=== PATIENT | female | born 1940 | race Caucasian/White ===

== ENCOUNTER → 2019-01-25 | Outpatient (CLI) | payer MEDICARE ==
--- NOTE | 2019-01-25 21:53 | MR ---
EXAMINATION TYPE: MR shoulder RT wo con DATE OF EXAM: 01/25/2019 COMPARISON: Plain film from outside institution 01/12/2019 HISTORY: Rt shoulder pain x 1 yr TECHNIQUE: Multiplanar, multisequence imaging of the right shoulder is performed without contrast. FINDINGS: There is motion on the exam. Rotator Cuff: Complete supraspinatus tendon tear is present with retraction to the level of the acrom ion. Acromioclavicular Joint: Marked arthropathy changes present. Glenohumeral Joint: There is remodeling of the glenohumeral joint. Some marginal spurring present. Labrum: Some intrasubstance signal is present, difficult to exclude some degenerative fraying at the superior labrum. Some linear increased signal at the posterior aspect also noted suspicious for tear Biceps Tendon: There is fluid signal in the bicipital groove. The tendon is not well-defined. Bone marrow signal: Some probable pseudocysts present within the humeral head. Other: There is a joint effusion. Fluid signal subacromial subdeltoid bursa. IMPRESSION: Probable chronic rotator cuff tear, remodeling at the glenohumeral joint as described with probable c hronic tear of the labrum. Long head of biceps tendon not appreciated, joint effusion. Osteoarthritic changes. Motion on the exam.
== END | disposition home or self-care (01) ==
LOC: RADMRIMAIN 18:19
PROVIDERS: ATTEND Orthopaedic Surgery
DX: M19.011 Primary osteoarthritis, right shoulder (principal); M25.411 Effusion, right shoulder

== ENCOUNTER 2019-02-25 08:14 | Day surgery (SDC) | payer MEDICARE ==
[2019-02-23 12:26] VITALS: BMI 26.6
--- NOTE | 2019-02-24 16:06 | HP ---
HISTORY AND PHYSICAL DATE OF SURGERY: 02/25/2019 Nancy Alegre is a 78-year-old patient seen with progressive right shoulder pain. We discussed options for treatment. She elected to proceed with right shoulder arthroscopy. Consent was obtained. Clearance was provided by Dr. Cartwright. PAST MEDICAL HISTORY: Hypertension. PAST SURGICAL HISTORY: Noncontributory. DAILY MEDICATIONS: Tribenzor. ALLERGIES: NONE. SOCIAL HISTORY: She denies tobacco use. PHYSICAL EVALUATION OF RIGHT SHOULDER: Flexion 90 degrees. Abduction 80 degrees. External rotation 20 degrees with significant weakness. Tenderness along the anterolateral acromion and rotator cuff insertion site. Impingement is positive at 90 degrees. Drop-arm sign is positive. Distal neurovascular exam is intact. RIGHT SHOULDER RADIOGRAPHS: Right shoulder radiographs revealed a type 2 anterior acromion, cystic changes of the greater tuberosity. Right shoulder MRI revealed a retracted rotator cuff tendon tear. IMPRESSION: 1. Right shoulder impingement with retracted rotator cuff tendon tear. 2. Right shoulder osteoarthritis. 3. Hypertension. PLAN: Right shoulder arthroscopy with subacromial decompression, arthroscopic rotator cuff repair, Terri procedure and debridement. MMODL / IJN: [id number] /
[~2019-02-25 08:14] MED LIST: LACTATED RINGERS 1,000 ML IV SCH
[2019-02-25] MEDS ORDERED: LIDOCAINE 1% 20 ML VIAL (10MG/ML) FOR IV START INTRADERMA ONE (08:53)
[2019-02-25] MEDS ORDERED: ONDANSETRON 4 MG/2 ML VIAL IVP ONE (08:59)
[2019-02-25] MEDS ORDERED: DEXAMETHASONE SOD PHOSPHATE 10 MG/ML 1 ML VIAL IV ONE (09:00)
[2019-02-25] MEDS: fentaNYL (PF) 50 MCG/ML 2 ML AMP IVP ONE ×2 (09:16→09:34)
[2019-02-25] MEDS: MIDAZOLAM 2 MG/2 ML VIAL IVP ONE ×2 (09:16→09:34)
[2019-02-25] MEDS ORDERED: ePHEDrine SULFATE/0.9% NACL/PF 50 MG/5 ML SYRINGE IV ONE (09:33)
[2019-02-25] MEDS ORDERED: PHENYLEPHRINE-0.9% NACL SYG 1 MG/10 ML SYRINGE ONE (09:33)
[2019-02-25] MEDS ORDERED: PROPOFOL 10 MG/ML 20 ML VIAL IV ONE (09:33)
[2019-02-25] MEDS ORDERED: LIDOCAINE 1% INJ 10MG/ML (20 ML MDV) ONE (09:33)
[2019-02-25] MEDS ORDERED: BUPIVACAINE (PF) 0.5% 30 ML VIAL ONE (09:33)
[2019-02-25] MEDS ORDERED: SUCCINYLCHOLINE CHLORIDE 100 MG/5 ML SYR IV ONE (09:33)
[2019-02-25 11:05] VITALS: TEMP 96.9
--- NOTE | 2019-02-25 11:12 | P.OP ---
Date of Procedure: 02/25/19 Preoperative Diagnosis: Right shoulder impingement Postoperative Diagnosis: 1. Right shoulder massive retracted rotator cuff tear 2. Right shoulder impingement 3. Right shoulder acromioclavicular joint osteoarthritis Procedure(s) Performed: 1. Right shoulder arthroscopic rotator cuff repair 2. Right shoulder arthroscopic subacromial decompression 3. Right shoulder arthroscopic Terri procedure Implants: 44.75 Arthrex swivel lock anchors Anesthesia: GETA, regional (Interscalene block) Surgeon: Thong Benitez Drink Mixer #1: Narayan Ortega Estimated Blood Loss (ml): 10 Pathology: none sent Condition: stable Disposition: PACU Indications for Procedure: 78-year-old patient seen with progressive right shoulder pain. After treatment options were discussed, she elected to proceed with arthroscopy. Operative Findings: See description of procedure Description of Procedure: Patient underwent an interscalene block by department of anesthesia for postoperative pain management. The patient was then taken to the operative suite. The patient underwent a general anesthetic by the department of anesthesia. The patient was placed into a lateral position and secured. There was appropriate padding of the bony prominence. Right shoulder was then prepped and draped in normal sterile orthopedic fashion. We placed the extremity in 10 pounds of longitudinal traction. A posterior incision was now made for a posterior working portal site. The trocar and cannula were inserted into the glenohumeral joint. Arthroscopy was initiated. Spinal needle was now inserted anteriorly, to ascertain the anterior working portal site. An incision was now made in that area, a trocar was inserted followed by a probe. The long head biceps tendon was absent consistent with a previous rupture. There was a massive rotator cuff tear visualized from glenohumeral side. There was grade 1/2 chondromalacia of the superior portion of the humeral head. There was no labral tear although the labrum was somewhat degenerated. No loose bodies were identified. Instruments removed from glenohumeral joint. Utilizing the posterior working portal site, the trocar and cannula were inserted into the subacromial space. Arthroscopy initiated. I made an incision 2 fingerbreadths lateral to the acromion. I introduced my trocar followed by my ArthroCare ablator. I now began ablating thick subacromial bursal tissue, which exposed the undersurface of the anterior acromion. There was diminished subacromial space. There was a very prominent anterior acromion. A motorized bur was introduced and a subacromial decompression was performed. I also excised some osteophytes off the inferior aspect of the distal clavicle. The AC joint was visualized and noted to be fairly arthritic. The motorized bur was introduced in the anterior portal site and a Terri procedure was performed without difficulty, decompressing the AC joint nicely. I turned my attention to the rotator cuff. There was a 3.5-4 cm rotator cuff tear. It was somewhat retracted but was able to get over the footprint. I debrided the margins getting down to stable tendon tissue. I introduced my motorized bur and abraded the footprint area, getting some petechial bleeding. I now made an accessory portal site off the lateral aspect of the acromion. I punched [] holes medial for medial row fixation with the assistance of Barry SNIDER carefully tapping the punch with a mallet as I held the punch and the camera. I now introduced both anchors into the pre-punched holes and Barry SNIDER tapped them with the mallet as I held anchors and the camera. Barry SNIDER now screwed the anchors in place a while I held the anchor guide and camera. All 8 limbs of suture were now passed through good bites of rotator cuff tendon. I now punched 2 holes for lateral row fixation again I held the punch and camera while Barry SNIDER used a mallet to tap in the punch. We now passed sutures through both anchors and individually I introduced the anchors into the pre-punch holes I held the anchor guide in position with one hand holding the camera with the other hand while Barry SNIDER tensioned the sutures and screwed in the anchors one at a time. All residual suture limbs were now clipped. We had good compression of the tendon along the entire footprint. I injected 1 mL Renyte intra-articular. Instruments now removed from the portal sites. All portal sites were approximated with nylon suture. Sterile dressings were applied followed by a shoulder immobilizer. Narayan SNIDER assisted in this complex case. The patient was awakened, transferred to a bed, and taken to recovery in stable condition.
[2019-02-25 11:53] VITALS: RESP 18
[2019-02-25 12:44] VITALS: BP 128/64; PULSE 82
--- NOTE | 2019-02-25 15:33 | P.ANPRN ---
Procedure Note - Anesthesia - Nerve Block Performed Right Interscalene Single Time Out Performed: Yes Date of Procedure: 02/25/19 Procedure Start Time: Procedure Stop Time: Location of Patient Procedure: PreOp Indication: Acute Post-Operative Pain, Requested by Surgeon Specifically requested for management of pain by DrRickey: Thong Benitez Sedation Type: Sedate with meaningful contact maintained Preparation: Sterile Prep Position: Supine Catheter: None Needle Types: Pajunk Needle Gauge: 21 Ultrasound used to visualize needle placement: Yes Ultrasound used to observe medication spread: Yes Injectate: 0.5% Ropivacaine (see comment for volume) Blood Aspirated: No Pain Paresthesia on Injection Noted: No Resistance on Injection: Normal Image Stored and Saved: Yes Events: Uneventful and Well Tolerated
== END 2019-02-25 12:59 | disposition home or self-care (01) ==
LOC: OR 08:14
PROVIDERS: ATTEND Orthopaedic Surgery
DX: M75.101 Unspecified rotator cuff tear or rupture of right shoulder, not specified as traumatic (principal); M19.011 Primary osteoarthritis, right shoulder; M75.41 Impingement syndrome of right shoulder; M25.711 Osteophyte, right shoulder; I10 Essential (primary) hypertension; Z79.899 Other long term (current) drug therapy; Z90.49 Acquired absence of other specified parts of digestive tract; Z98.41 Cataract extraction status, right eye; Z98.42 Cataract extraction status, left eye; Z96.652 Presence of left artificial knee joint; Z98.51 Tubal ligation status
CPT/HCPCS: 93005; 64415; 84132; 29827; 29826; 29824; C1713 ×3; Q4212; J2250; J1100; J2405; J0690; J2001; J3010; J2370; J0330; J2704; 76942

== ENCOUNTER → 2019-09-27 | Outpatient (CLI) | payer MEDICARE | END | disposition home or self-care (01) | LOC: LABPAT 11:48 | PROVIDERS: ATTEND Orthopaedic Surgery | DX: Z01.812 Encounter for preprocedural laboratory examination (principal) | CPT/HCPCS: 87070 ==

== ENCOUNTER 2019-10-04 08:46 | Day surgery (SDC) | payer MEDICARE ==
[2019-09-30 12:37] VITALS: BMI 27.6
--- NOTE | 2019-10-03 15:32 | HP ---
HISTORY AND PHYSICAL Surgery 10/04/2019. Nancy Alegre is a 78-year-old patient seen with progressive symptomatic left knee osteoarthritis. We discussed options. She elected to proceed with left total knee arthroplasty. Consent regarding the procedure was obtained. Medical clearance was provided by Dr. Cartwright. PAST MEDICAL HISTORY: Hyperlipidemia. SURGICAL HISTORY: Right shoulder arthroscopy, right total knee arthroplasty, left knee arthroscopy. DAILY MEDICATIONS: Aspirin, Tribenzor, vitamins. ALLERGIES: None. SOCIAL HISTORY: She denies tobacco use. PHYSICAL EXAMINATION: Evaluation of the left knee: Her range of motion is -5/6-115. Tenderness medial joint line. Crepitus medial patellofemoral compartments. Pain with patellofemoral compression. Ligaments stable. Hip rotation without pain. Distal neurovascular exam is intact. RADIOGRAPHS: Radiographs of the left knee reveal severe osteoarthritic changes. IMPRESSION: 1. Left knee osteoarthritis. 2. Dxc-hrapjdp-ihaecziez diabetes. 3. Hypertension. PLAN: Left total knee arthroplasty. MMODL / IJN: [id number] /
[~2019-10-04 08:46] MED LIST changes: +ACETAMINOPHEN TAB 500 MG TAB PO ONE; +DEXAMETHASONE SOD PHOSPHATE 10 MG/ML 1 ML VIAL IV ONE; +HYDROmorphone 0.5 MG/0.5 ML SYRINGE IVP PRN; -LACTATED RINGERS 1,000 ML IV SCH; +MELOXICAM 7.5 MG TAB PO ONE; +MIDAZOLAM 2 MG/2 ML VIAL IV PRN; +ONDANSETRON 4 MG/2 ML VIAL IVP ONE; +ROPIVACAINE 246.25 MG, EPINEPHrine 0.5 MG, KETOROLAC 30 MG, cloNIDine HCL/PF 80 MCG, WA... MISCELLANE ONE; +TRANEXAMIC ACID 1,000 MG in SODIUM CHLORIDE 0.9% 100 ML IVPB ONE
[2019-10-04] MEDS: LACTATED RINGERS 1,000 ML IV SCH (09:39)
[2019-10-04] MEDS ORDERED: MIDAZOLAM 2 MG/2 ML VIAL IV ONE (09:47)
[2019-10-04 10:01] LABS: ALT 13 U/L (4-34); AST 27 U/L (14-36); African American GFR (CKD) >90 (>60 ml/min/1.73 sqM); Albumin 4.3 g/dL (3.5-5.0); Alkaline Phosphatase 90 U/L (38-126); Anion Gap 10 mmol/L; Blood Urea Nitrogen 18 mg/dL (7-17); Calcium 9.3 mg/dL (8.4-10.2); Carbon Dioxide 26 mmol/L (22-30); Chloride 104 mmol/L (98-107); Glucose 104 mg/dL (74-99); Non-African American GFR(CKD) 85 (>60 ml/min/1.73 sqM); Potassium 3.9 mmol/L (3.5-5.1); Sodium 140 mmol/L (137-145); Total Bilirubin 0.6 mg/dL (0.2-1.3); Total Protein 7.7 g/dL (6.3-8.2)
[2019-10-04] MEDS ORDERED: fentaNYL (PF) 50 MCG/ML 2 ML AMP ONE (10:02)
[2019-10-04] MEDS ORDERED: TRANEXAMIC ACID 1,000 MG/10 ML VIAL ONE (10:02)
[2019-10-04] MEDS ORDERED: SODIUM CHLORIDE 0.9% 250 ML BAG ONE (10:02)
[2019-10-04] MEDS ORDERED: MIDAZOLAM 2 MG/2 ML VIAL ONE (10:02)
[2019-10-04] MEDS ORDERED: ceFAZolin 3,000 MG in SODIUM CHLORIDE 0.9% IRRIGATIO 3,000 ML IRRIGATION ONE (10:40)
[2019-10-04] MEDS ORDERED: NALOXONE 0.4 MG/ML 1 ML VIAL IV PRN (12:06)
[2019-10-04] MEDS ORDERED: HYDROcodone/APAP 5-325MG 1 EACH TAB PO PRN (12:06)
[2019-10-04] MEDS ORDERED: HYDROmorphone 0.5 MG/0.5 ML SYRINGE IVP PRN ×3 (12:06)
[2019-10-04] MEDS ORDERED: ONDANSETRON 4 MG/2 ML VIAL IVP PRN (12:06)
--- NOTE | 2019-10-04 12:06 | P.OP ---
Date of Procedure: 10/04/19 Preoperative Diagnosis: Left knee osteoarthritis Postoperative Diagnosis: Left knee osteoarthritis Procedure(s) Performed: Left total knee arthroplasty Implants: 1. Depuy attune size 4 left cruciate-retaining cemented femur 2. Depuy attune size 4 fixed bearing cemented tibial baseplate 3. Depuy attune size 4 fixed bearing cruciate retaining 10 mm polyethylene tibial insert 4. Depuy attune 32 mm all polyethylene cemented patella Anesthesia: regional (Adductor canal catheter), local, spinal Surgeon: Thong Benitez Director Custom #1: Narayan Ortega Estimated Blood Loss (ml): 50 Pathology: other Condition: stable Disposition: PACU Indications for Procedure: 78-year-old patient seen with symptomatic left knee osteoarthritis. After treatment options were discussed, she elected to proceed with total knee arthroplasty. Operative Findings: See description of procedure Description of Procedure: Patient was taken to the operative suite after having an adductor canal catheter placed by the department of anesthesia. Patient underwent a spinal anesthetic by the department of anesthesia. Patient was given preoperative IV intake antibiotics and TXA. A well-padded tourniquet was placed about the left lower extremity. The lower extremity was then prepped and draped in the normal sterile orthopedic fashion. The extremity was elevated, a tourniquet was insufflated to 300. A standard anterior incision was made sharply through skin. Dissection was taken down through the subcutaneous soft tissues down to the extensor mechanism. A medial arthrotomy was performed, patella was everted and knee was flexed. There was advanced osteoarthritis noted. I introduced my distal intramedullary femoral drill. I then introduced the distal femoral cutting jig. Barry SNIDER secured the cutting jig with 2 pins. I held retractors in position while Barry SNIDER performed the distal femoral resection through the guide area we now removed her distal femoral cutting guide. We now placed our 4-in-1 femoral cutting block and positioned and it was secured with 2 pins by Barry SNIDER while I held the block in position. The distal femoral finishing was now completed. A proximal tibial cutting guide was positioned. I held the guide in the appropriate position with both hands well Barry SNIDER inserted stabilizing pins into the guide. Proximal tibial cut wa s made. We now placed a trial femoral component into position, along with an appropriate size tibial tray and insert. We now took the knee through range of motion and had full extension good flexion and good overall soft tissue balance noted. The patella was everted and stabilized with 2 towel clips held by Barry SNIDER while I performed a flush with patellar quad tendon utilizing a fresh sawblade. We templated the patella, appropriate drill holes were made. An appropriate trial patella was positioned, knee was taken through full range of motion with the patella tracking very nicely. The trial patella was removed. Drill holes were made through the femoral component. All trial components were removed after marking off the appropriate rotation of the tibia. Retractors were now positioned along the proximal tibia. An appropriate keel punch was made with the appropriate size tibial guide by myself on Barry SNIDER assisted by holding retractors. At this point appropriate size implants were chosen and opened. The joint was irrigated copiously with pulse lavage mechanical irrigation. The posterior capsule was infiltrated with local analgesic. The wound was irrigated with pulse lavage mechanical irrigation. We mixed antibiotic methylmethacrylate. We placed the knee into flexion. We placed multiple retractors assisted by Barry SNIDER to expose the proximal tibia. Once the methyl methacrylate was ready, the tibial component was cemented into place removing any excess methylmethacrylate form by both myself and Barry SNIDER. The femoral component was cemented into place removing the removing any excess methylmethacrylate performed by both myself and Barry SNIDER. We then inserted the appropriate size polyethylene tibial insert. We made sure that it was locked into position. We took the knee into full extension, and then back in a flexion making sure we had removed any excess methylmethacrylate. The patellar component was then cemented down and secured with clamp. Excess methylmethacrylate removed. We kept the knee in full extension, patellar clamp in position until methylmethacrylate had hardened. Once it had hardened the patellar clamp was removed. The knee was taken through full range of motion. The patella tracked nicely. There was good soft tissue balancing. The tourniquet was now released. Additional hemostasis was achieved via electrocautery. A second gram of TXA was given. The wound again was irrigated with pulse lavage mechanical irrigation. The superficial soft tissues were infiltrated local analgesic. The extensor mechanism was repaired with Vicryl. We checked the repair with range of motion and it was stable. The subcutaneous soft tissues were repaired with Vicryl in layers. The skin was approximated with pernio/Dermabond. Sterile dressings were applied followed by loose web roll and Tha bandage. The patient was transferred to a bed, and taken to recovery in stable and satisfactory condition. Barry SNIDER assisted with this complex procedure.
[2019-10-04] MEDS ORDERED: LACTATED RINGERS 1,000 ML IV ONE ×2 (12:15)
[2019-10-04] MEDS ORDERED: ROPIVACAINE 0.2%-NS ON-Q PUMP 1,090 MG, EMPTY PAIN BALL 1 EACH MISCELLANE PRN ×2 (12:17→12:23)
--- NOTE | 2019-10-04 12:23 | P.ANPRN ---
Procedure Note - Anesthesia - Nerve Block Performed Left Adductor Canal Infusion Time Out Performed: Yes Date of Procedure: 10/04/19 Procedure Start Time: 09:47 Procedure Stop Time: 09:59 Location of Patient: PreOp Indication: Acute Post-Operative Pain, Requested by Surgeon Sedation Type: Sedate with meaningful contact maintained Preparation: Sterile Prep, Sterile Dressing Position: Supine Catheter: Indwelling Needle Types: Pajunk Needle Gauge: 21 Ultrasound used to visualize needle placement: Yes Ultrasound used to observe medication spread: Yes Blood Aspirated: No Pain Paresthesia on Injection Noted: No Resistance on Injection: Normal Image Stored and Saved: Yes Events: Uneventful and Well Tolerated (ropi .5% 20cc plus dexamethasone 4mg)
--- NOTE | 2019-10-04 13:08 | XR ---
EXAMINATION TYPE: XR knee limited LT DATE OF EXAM: 10/04/2019 COMPARISON: NONE TECHNIQUE: Two views submitted HISTORY: Post op FINDINGS: There is a prosthetic knee in near anatomic alignment. There is soft tissue edema and emphysema. IMPRESSION: 1. Postoperative change. Appears in near-anatomic alignment
[2019-10-04] MEDS: SODIUM CHLORIDE 0.9% 1,000 ML IV SCH (19:25)
[2019-10-04] MEDS: HYDROcodone/APAP 5-325MG 1 EACH TAB PO PRN (19:47)
[2019-10-04] MEDS ORDERED: SENNOSIDES-DOCUSATE SODIUM 1 EACH TAB PO SCH (21:00)
[2019-10-04] MEDS: ENOXAPARIN 30 MG/0.3 ML SYRINGE SQ SCH (23:17)
--- NOTE | 2019-10-05 00:01 | P.CONS ---
History of Present Illness - Reason for Consult Consult date: 10/04/19 - History of Present Illness The patient was seen and examined on the [address] floor at 11 PM on 10/03. The patient is a 78-year-old female with a PMH of hypertension who was admitted to the hospital for scheduled left total knee replacement which she underwent earlier today. The patient was subsequently seen postoperatively. The patient reported excellent control of her pain, currently at a 3 out of 10, aching in nature. She reports walking to the bathroom and passing urine. She denied any additional complaints. She denied chest pain, shortness of fever, chills, nausea, vomiting, dizziness, sore throat, or headache. She reports compliance with her home antihypertensive and reported taking a multivitamin 3 times weekly and denied any additional [id number] medication use. Review of Systems Pertinent positives and negatives as discussed in HPI, a complete review of systems was performed and all other systems are negative. Past Medical History Past Medical History: Hypertension, Osteoarthritis (OA) Additional Past Medical History / Comment(s): hx. of LBBB per pt. dx. couple years ago, had normal stress test @that time, currently has dental implant that needs work on-going to dentist today History of Any Multi-Drug Resistant Organisms: None Reported Past Surgical History: Cholecystectomy, Joint Replacement, Orthopedic Surgery Additional Past Surgical History / Comment(s): Bilateral Cataracts removed, right knee replacement, bilateral wrist carpal tunnel surgery., right shoulder arthroscopy Past Anesthesia/Blood Transfusion Reactions: No Reported Reaction Smoking Status: Never smoker - Past Family History Brother(s) Family Medical History: Cancer Medications and Allergies Home Medications Medication Instructions Recorded Confirmed Type Calcium Carbonate [Calcium] 600 mg PO DAILY 02/23/19 09/30/19 History Multivitamins, Thera [Multivitamin 1 tab PO DAILY 02/23/19 09/30/19 History (formulary)] Olmesartan/Amlodipin/Hcthiazid 1 each PO 1700 02/23/19 09/30/19 History [Tribenzor 40-5-25 mg Tablet] Allergies Allergy/AdvReac Type Severity Reaction Status Date / Time No Known Allergies Allergy Verified 10/04/19 09:23 Physical Exam Vitals: Vital Signs Temp Pulse Pulse Resp BP Pulse Ox 10/04/19 19:08 98.0 F 96 14 114/72 94 L 10/04/19 17:00 89 16 132/60 96 10/04/19 16:00 97.9 F 88 18 135/65 98 10/04/19 15:00 91 16 120/67 98 10/04/19 14:30 90 16 126/68 98 10/04/19 14:00 85 16 125/64 99 10/04/19 13:30 89 16 119/61 98 10/04/19 13:11 81 16 117/56 98 10/04/19 12:56 83 16 108/60 98 10/04/19 12:41 86 16 111/64 100 10/04/19 12:26 78 16 102/60 99 10/04/19 12:11 96.9 F L 79 16 100/47 98 10/04/19 10:08 74 16 95 10/04/19 09:16 97.4 F L 88 16 141/66 98 Intake and Output 10/04/19 10/04/19 10/05/19 14:59 22:59 06:59 Intake Total 1051 500 Output Total 50 Balance 1001 500 Intake: IV 1051 300 Oral 200 Output: Estimated Blood Loss 50 Other: Voiding Method Toilet # Voids 1 Weight 60.4 kg 60.4 kg General: non toxic, no distress, appears at stated age, normal weight Derm: no unusual rashes/lesions no unusual ecchymoses, warm, dry Head: atraumatic, normocephalic, symmetric Eyes: EOMI, no lid lag, anicteric sclera, pupils equal round reactive to light ENT: Nose and ears atraumatic, no thrush, no pharyngeal erythema Neck: No thyromegaly, no cervical lymphadenopathy, trachea midline, supple Mouth: no lip lesion, mucus membranes moist Cardiovascular: S1S2 reg, no murmur, positive posterior tibial pulse bilateral, no edema, capillary refill less than 2 seconds Lungs: CTA bilateral, no rhonchi, no rales , no accessory muscle use Abdominal: soft, nontender to palpation, no guarding, no appreciable organomegaly, normal bowel sounds Ext: Left knee with overlying Tha bandage in place, clean and dry, no gross muscle atrophy, muscle strength 5 out of 5 in all 4 extremities grossly except left lower extremity due to pain, no contractures, Neuro: CN II-XI grossly intact, light touch intact all 4 extremities, finger to nose within normal limits, Psych: Alert, oriented, appropriate affect Results CBC & Chem 7: 10/04/19 09:37 Labs: Abnormal Lab Results - Last 24 Hours (Table) 10/04/19 Range/Units 09:37 BUN 18 H (7-17) mg/dL Glucose 104 H (74-99) mg/dL Assessment and Plan Plan: Status post left total knee replacement -Management including pain control as per orthopedic surgery -Currently on pain pump with [place] and Mobic Hypertension -Continue with home meds Elevated BUN -Monitor BMP
[2019-10-05] MEDS: LACTATED RINGERS 1,000 ML IV SCH (04:59)
[2019-10-05 06:37] LABS: Basophils % (A) 0 %; Eosinophils % (A) 0 %; HCT 36.9 % (34.0-46.0); HGB 11.6 gm/dL (11.4-16.0); Lymphocytes # (A) 1.3 k/uL (1.0-4.8); Lymphocytes % (A) 9 %; MCH 29.7 pg (25.0-35.0); MCHC 31.6 g/dL (31.0-37.0); MCV 94.2 fL (80.0-100.0); Mean Platelet Volume 8.1; Monocytes # (A) 0.8 k/uL (0-1.0); Monocytes % (A) 6 %; Neutrophils # (A) 11.4 k/uL (1.3-7.7); Neutrophils % (A) 84 %; Platelet Count 213 k/uL (150-450); RBC 3.92 m/uL (3.80-5.40); RDW 13.2 % (11.5-15.5); WBC 13.6 k/uL (3.8-10.6)
--- NOTE | 2019-10-05 06:52 | P.PN ---
Progress Note - Text Progress Note Date: 10/05/19 The patient is doing well status post total knee replacement. Pain is well con trolled by a combination of local anesthetic infusion through the adductor canal catheter and oral analgesics. There are no signs of infection around the catheter skin entry site. The local anesthetic infusion will be continued as per protocol.
[2019-10-05 07:00] VITALS: BP 124/69; PULSE 76; RESP 18; TEMP 97.8
[2019-10-05] MEDS: SODIUM CHLORIDE 0.9% 1,000 ML IV SCH (07:46)
[2019-10-05] MEDS: ENOXAPARIN 30 MG/0.3 ML SYRINGE SQ SCH (08:26)
[2019-10-05] MEDS ORDERED: MELOXICAM 7.5 MG TAB PO SCH (09:00)
--- NOTE | 2019-10-05 09:20 | P.PN ---
Subjective Progress Note Date: 10/05/19 Principal diagnosis: knee pain Patient is a 78-year-old female with a past medical history of hypertension, osteoarthritis, and left bundle branch block who presented for elective left total knee arthroplasty. Patient seen and examined at bedside. She does complain of some pain in her knee. She states it was worse after walking but was not much all day yesterday after surgery or last evening. She denies chest pain, shortness breath, nausea, or vomiting. Has worked with physical therapy this morning and has done well. General: Nontoxic, no distress, appears at stated age Derm: Dressing in place over left knee warm, dry Head: atraumatic, normocephalic, symmetric Eyes: EOMI, no lid lag, anicteric sclera Mouth: no lip lesion, mucus membranes moist Cardiovascular: S1S2 reg, no murmur, positive posterior tibial pulse bilateral, Lungs: CTA bilateral, no rhonchi, no rales , no accessory muscle use Ext: no gross muscle atrophy, no edema, no contractures Neuro: CN II-XI grossly intact, no focal neuro deficits Psych: Alert, oriented, appropriate affect Patient is 78-year-old female status post left total knee arthroplasty. Hypertension, controlled -Follow blood pressures -Resume home, needs refill on losartan, amlodipine, and hydrochlorothiazide evening -Follow up in outpatient setting with Dr. Wade Post op pain - continue regiment - Consider increasing on [place] Patient medically optimized for discharge. Discharge Home Rx have been addressed. Thank you for allowing us to participate in the care of this pleasant patient. Do not hesitate to contact us with questions. Someone can be reached from the [facility] hospitalist group all hours of the day at [phone] or via perfect serve. Objective - Vital Signs Vital signs: Vital Signs Temp 97.8 F 10/05/19 06:59 Pulse 76 10/05/19 06:59 Resp 18 10/05/19 06:59 BP 124/69 10/05/19 06:59 Pulse Ox 94 L 10/05/19 06:59 Intake & Output 10/04/19 10/05/19 10/05/19 18:59 06:59 18:59 Intake Total 1351 200 Output Total 50 Balance 1301 200 Weight 60.4 kg Intake: IV 1351 Oral 200 Output: Estimated Blood Loss 50 Other: Voiding Method Toilet Toilet Toilet # Voids 1 - Labs CBC & Chem 7: 10/05/19 06:17 10/04/19 09:37 Labs: Abnormal Lab Results - Last 24 Hours (Table) 10/04/19 10/05/19 Range/Units 09:37 06:17 WBC 13.6 H (3.8-10.6) k/uL Neutrophils # 11.4 H (1.3-7.7) k/uL BUN 18 H (7-17) mg/dL Glucose 104 H (74-99) mg/dL
--- NOTE | 2019-10-05 10:18 | P.PN ---
Subjective Progress Note Date: 10/05/19 Principal diagnosis: Status post left total knee arthroplasty Patient neurologist this time, she is done well with therapy. She has no acute pain. She denies chest pain, shortness of breath, fever or chills. Objective - Vital Signs Vital signs: Vital Signs Temp 97.8 F 10/05/19 06:59 Pulse 76 10/05/19 06:59 Resp 18 10/05/19 06:59 BP 124/69 10/05/19 06:59 Pulse Ox 94 L 10/05/19 06:59 Intake & Output 10/04/19 10/05/19 10/05/19 18:59 06:59 18:59 Intake Total 1351 200 296 Output Total 50 Balance 1301 200 296 Weight 60.4 kg Intake: IV 1351 Oral 200 296 Output: Estimated Blood Loss 50 Other: Voiding Method Toilet Toilet Toilet # Voids 1 1 - Exam Left lower extremity: Incision is clean, dry, and intact. The exofin fusion tape is in good condition. There is minimal soft tissue swelling and ecchymosis surrounding the medial and lateral aspects of the incision. Calf is soft, no tenderness with palpation. Plantar flexion, dorsiflexion, EHL, FHL are intact. Sensory exam to light touch throughout the extremity is intact, dorsal pedis pulses 2+. - Labs CBC & Chem 7: 10/05/19 06:17 10/04/19 09:37 Labs: Abnormal Lab Results - Last 24 Hours (Table) 10/05/19 Range/Units 06:17 WBC 13.6 H (3.8-10.6) k/uL Neutrophils # 11.4 H (1.3-7.7) k/uL Assessment and Plan Assessment: Status post left total knee arthroplasty Plan: Pain control, plan for discharge home on oral medication GI and DVT prophylaxis, aspirin 81 mg twice a day Wound care instructions discussed Home physical therapy and nursing after discharge Medical recommendations Discharge home today Time with Patient: Less than 30
--- NOTE | 2019-10-05 10:20 | P.DS ---
Providers Date of admission: 10/04/2019 Expected date of discharge: 10/05/19 Attending physician: Thong Benitez Consults: 10/04/19 12:06 Consult Physician Routine Consulting Provider: Estefani Gibson Consult Reason/Comments: Medical management Do you want consulting provider notified?: Yes Primary care physician: [facility] Hospital Course: Date of admission: 10/04/2019 Date of discharge: 10/05/2019 Admission diagnosis: Status post left total knee arthroplasty Discharge diagnosis: Same Attending physician: Dr. Benitez Surgical procedures: Left total knee arthroplasty Brief history: Patient is a 78-year-old female with a history of progressive primary left knee osteoarthritis. At this point patient has failed conservative treatment measures and has opted to proceed with a elective left total knee arthroplasty. Hospital course: Details of patient's surgery can be found in operative report. Patient tolerated the procedure well and was subsequently transported to orthopedic floor. Patient's orthopeidc and medical care was provided daily. Patient had daily laboratory tests performed for evaluation of overall blood counts. Patient had daily physical therapy to include strengthening range of motion as well as education with walker ambulation. Patient had daily CPM usage as part of their physical therapy program. Patient was treated with Lovenox for their postoperative DVT prophylaxis during their inpatient stay. Patient was noted to have a relatively uneventful postoperative course. Patient reported satisfactory pain control with oral pain medications by postoperative day 0. Patient showed satisfactory progress with physical therapy. Patient moved steadily through the program and had no difficulty meeting the goals by posto perative day 1. Given patient's otherwise satisfactory course and having met physical therapy goals, plan is to discharge patient home on postoperative day 1. Discharge condition/disposition: Patient will be discharged home in stable condition. Discharge medications: Instructions are given on resumption of patient's normal daily medications per primary care recommendation, in addition patient will be prescribed [place] 5 mg/325 mg, Colace 100 mg, aspirin 81 mg. Discharge instructions: 1. Wound care and infection precautions, keep incision dry and covered while showering, no lotions, creams, moisturizers. No soaking, tubs, pools, hottubs. Do not scrub over the incision. 2. Weight-bear as tolerated with walker / cane until follow-up. 3. Ice and elevate when necessary. Do not exceed 20 minutes per hour with ice pack. 4. Utilize compression sleeve until seen at first follow up appointment. 5. Visiting nursing care. 6. Home physical therapy including home CPM. 7. Pain meds and anticoagulants per prescription. 8. Pain medication has potential to cause constipation. Increase oral fluid and fiber intake. Contact primary care provider if you have not had a bowel movement within 48 hours after discharge 9. No anti-inflammatory medication until discussed at first post operative visit, this including Motrin, Aleve, Mobic, Diclofenac. 10. Follow up in office at 2 weeks postop with Barry Ortgea PA-C 11. Follow up with your primary care doctor 7-10 days after discharge. 12. Contact [facility] with any questions, . Procedures: Left total knee arthroplasty Patient Condition at Discharge: Good Plan - Discharge Summary Discharge Rx Participant: Yes New Discharge Prescriptions: New Aspirin [Adult Low Dose Aspirin EC] 81 mg PO BID #60 tablet. Docusate [Colace] 100 mg PO DAILY #30 capsule Hydrocodone/Acetaminophen [[place] 5-325] 1 - 2 each PO Q6HR PRN #56 tab PRN Reason: Pain Continue Multivitamins, Thera [Multivitamin (formulary)] 1 tab PO DAILY Olmesartan/Amlodipin/Hcthiazid [[place] 40-5-25 mg Tablet] 1 each PO 1700 Calcium Carbonate [Calcium] 600 mg PO DAILY Discharge Medication List Calcium Carbonate [Calcium] 600 mg PO DAILY 02/23/19 [History] Multivitamins, Thera [Multivitamin (formulary)] 1 tab PO DAILY 02/23/19 [History] Olmesartan/Amlodipin/Hcthiazid [Tribenz[place] 40-5-25 mg Tablet] 1 each PO 1700 02/23/19 [History] Aspirin [Adult Low Dose Aspirin EC] 81 mg PO BID #60 tablet. 10/05/19 [Rx] Docusate [Colace] 100 mg PO DAILY #30 capsule 10/05/19 [Rx] Hydrocodone/Acetaminophen [[place] 5-325] 1 - 2 each PO Q6HR PRN #56 tab 10/05/19 [Rx] Follow up Appointment(s)/Referral(s): [facility], [NON-STAFF] - 1-2 Days Narayan Ortega PAC [PHYSICIAN RETAIL FINANCIAL ANALYST] - 10/22/19 1:50 pm Jeffrey Cartwright DO [Primary Care Provider] - 3 Days (Patient to contact office to set up a virtual appointment - office not currently seeing patients who have been in hospital until 4 weeks post discharge. ) Patient Instructions/Handouts: *Surgery [facility] - On-Q Pain Pump Discharge Instructions, Precautions after Total Joint Replacement Surgery (DC), Knee Replacement (DC) Activity/Diet/Wound Care/Special Instructions: [facility] can be contacted at [phone] when you arrive at home to deliver your CPM. Orthopedic Discharge Instructions: 1. Wound care and infection precautions, keep incision dry and covered while showering, no lotions, creams, moisturizers. No soaking, pools, hot tubs. Do not scrub over incision. 2. Weight-bear as tolerated with walker / cane until follow-up. 3. Ice and elevate when necessary. Do not exceed 20 minutes per hour with ice pack. 4. Utilize compression sleeve until seen at first follow up appointment. 5. Pain meds and anticoagulants per prescription. 6. Pain medication has potential to cause constipation. Increase oral fluid and fiber intake. Contact primary care provider if you have not had a bowel movement within 48 hours after discharge. 7. No anti-inflammatory medication until discussed at first post operative visit, this including Motrin, Aleve, Mobic, Diclofenac. 8. Follow up in office at 2 weeks postop with Barry Ortega PA-C 9. Follow up with your primary care doctor 7-10 days after discharge. 10. Contact [facility] with any questions, . Discharge Disposition: HOME WITH HOME HEALTH SERVICES
[2019-10-05] MEDS: HYDROcodone/APAP 5-325MG 1 EACH TAB PO PRN (11:32)
[2019-10-05] MEDS ORDERED: OLMESARTAN PO SCH (17:00)
[2019-10-05] MEDS ORDERED: HCTHIAZID PO SCH (17:00)
[2019-10-05] MEDS ORDERED: [UNRECOGNIZED DRUG - OTHER] PO SCH (17:00)
[2019-10-05] MEDS ORDERED: AMLODIPIN PO SCH (17:00)
== END 2019-10-05 11:34 | disposition home health service (06) ==
LOC: OR 08:46 → 6PED 12:08 → OR 10-05 11:34
PROVIDERS: ATTEND Orthopaedic Surgery
DX: M17.12 Unilateral primary osteoarthritis, left knee (principal); I10 Essential (primary) hypertension; Z96.651 Presence of right artificial knee joint; Z90.49 Acquired absence of other specified parts of digestive tract; Z98.890 Other specified postprocedural states; I44.7 Left bundle-branch block, unspecified; E78.5 Hyperlipidemia, unspecified; E11.9 Type 2 diabetes mellitus without complications; Z97.2 Presence of dental prosthetic device (complete) (partial); Z98.42 Cataract extraction status, left eye; Z98.41 Cataract extraction status, right eye; Z79.82 Long term (current) use of aspirin; Z79.899 Other long term (current) drug therapy
CPT/HCPCS: 97110; 97161; 64448; 76942; 80053; 85025; 88300; 73560; 27447; C1776; C1713; J2250; J1100; J0690 ×3; J2405; J1650 ×2; J1170; J2795